=== PATIENT | female | born 1985 | race Caucasian/White ===

== ENCOUNTER 2018-08-24 09:01 | Day surgery (SDC) | payer OTHER ==
[~2018-08-24] VITALS: Ht 152.4 cm; Wt 93.4 kg
[2018-08-24] MEDS ORDERED: CEFAZOLIN SODIUM 1 GM/D5W PM 50 ML IV SCH (11:05)
[2018-08-24] MEDS ORDERED: SEVOFLURANE 250 ML BTL INH ONE (11:30)
[2018-08-24] MEDS ORDERED: DEXAMETHASONE 4 MG/ML VIAL ONE (11:30)
[2018-08-24] MEDS ORDERED: ONDANSETRON 4 MG/2 ML VIAL ONE (11:30)
[2018-08-24] MEDS ORDERED: PROPOFOL 200 MG/20 ML VIAL IV ONE (11:30)
[2018-08-24] MEDS ORDERED: KETOROLAC 30 MG/ML VIAL ONE (11:30)
[2018-08-24] MEDS ORDERED: MIDAZOLAM 2 MG/2 ML VIAL ONE (11:36)
[2018-08-24] MEDS ORDERED: fentaNYL 0.05 MG/ML VIAL ONE (11:37)
[2018-08-24] MEDS ORDERED: MEPERIDINE 50 MG/ML SYR ONE (11:37)
[2018-08-24] MEDS ORDERED: BUPIVACAINE-MPF/EPI 0.25% 30 ML VIAL INJ ONE (11:38)
[2018-08-24] MEDS ORDERED: LIDOCAINE/EPI MPF 1%1:200000 30 ML VIAL INJ ONE (11:38)
[2018-08-24] MEDS ORDERED: diphenhydrAMINE 50 MG/ML VIAL IVP PRN (12:05)
[2018-08-24] MEDS ORDERED: HYDROmorphone 1 MG/ML AMP IVP PRN ×2 (12:05→12:35)
[2018-08-24] MEDS ORDERED: MEPERIDINE 25 MG/ML SYR IVP PRN (12:05)
[2018-08-24] MEDS ORDERED: LACTATED RINGERS 1,000 ML IV SCH (12:05)
[2018-08-24] MEDS ORDERED: ONDANSETRON 4 MG/2 ML VIAL IVP PRN (12:05)
[2018-08-24] MEDS ORDERED: MORPHINE SULFATE 2 MG/ML SYR IVP PRN (12:35)
[2018-08-24] MEDS ORDERED: MORPHINE SULFATE 4 MG/ML SYR IV PRN (12:35)
[2018-08-24] MEDS ORDERED: HYDROcodone/APAP 5/325 MG 1 TAB TAB PO PRN (12:35)
[2018-08-24] MEDS ORDERED: ONDANSETRON 4 MG/2 ML VIAL IV PRN (12:35)
[2018-08-24] MEDS ORDERED: ACETAMINOPHEN 325 MG TAB PO PRN (12:35)
== END 2018-08-24 14:05 | disposition home or self-care (01) ==
LOC: MDS 09:01 → MMU 09:02 → MDS 14:05
PROVIDERS: ATTEND Surgery
DX: D17.0 Benign lipomatous neoplasm of skin and subcutaneous tissue of head, face and neck (principal); E66.9 Obesity, unspecified; Z98.890 Other specified postprocedural states; Z68.41 Body mass index [BMI] 40.0-44.9, adult; Z79.899 Other long term (current) drug therapy
CPT/HCPCS: 21552; 71045; 88304; J0690; J1100; J1885; J2001; J2250; J2405; J2704; J3010; J3490; J7060; J7120; J2175